=== PATIENT | male | born 1975 | race American Indian/Alaskan Native ===

== ENCOUNTER 2020-06-30 05:33 | Emergency (ER) | payer SELFPAY ==
[2020-06-30 06:25] LABS: Basophils # (Auto) 0.1 K/mm3 (0.0-0.1); Basophils % (Auto) 0.5 % (0.0-1.8); Hemoglobin 14.3 gm/dl (11.8-15.2); Lymphocytes # (Auto) 1.1 K/mm3 (1.2-5.4); Lymphocytes % (Auto) 8.3 % (13.4-35.0); Mean Corpuscular HGB Conc 34 % (32-34); Mean Corpuscular Volume 95 fl (84-94); Monocytes # (Auto) 0.5 K/mm3 (0.0-0.8); Monocytes % (Auto) 3.6 % (0.0-7.3); Platelet Count 318 K/mm3 (140-440); Red Blood Count 4.41 M/mm3 (3.65-5.03); Red Cell Distribution Width 12.5 % (13.2-15.2)
[2020-06-30 06:51] LABS: Alanine Aminotransferase 37 units/L (7-56); Albumin 4.7 g/dL (3.9-5); BUN/Creatinine Ratio 16; Blood Urea Nitrogen 18 mg/dL (9-20); Calcium 9.9 mg/dL (8.4-10.2); Hemolysis Index 15
[2020-06-30 09:30] LABS: Amorphous Crystals,Urine Few; Bilirubin,Urine NEG (Negative); Blood,Urine NEG (Negative); Color,Urine Yellow (Yellow); Mucus,Urine 3+ /HPF; Urobilinogen,Urine < 2.0 mg/dL (<2.0)
[2020-06-30] MEDS ORDERED: KETOROLAC 30 MG/1 ML INJ IV ONE (10:54)
[2020-06-30] MEDS ORDERED: ONDANSETRON 4 MG/2 ML INJ IM ONE (10:55)
--- NOTE | 2020-06-30 10:59 | Emergency Department Report ---
ED Abdominal Pain HPI - General Chief Complaint: Abdominal Pain Stated Complaint: BACK/STOMACH PAIN Source: patient Mode of arrival: Stretcher Limitations: No Limitations - History of Present Illness Initial Comments: 44-year-old male complaining of right flank pain started last night around 10 PM. The pain has now radiated to the right upper quadrant of his abdomen. He reports several episodes of vomiting and nausea. Denies any diarrhea. Patient denies chest pain shortness of breath fever and chills his last bowel movement was at 4 AM. Patient has history of kidney stones last episode was 2 years ago MD Complaint: abdominal pain, flank pain -: Sudden, Last night (2199) Location: RUQ, R flank Severity: severe Severity scale (0 -10): 10 Quality: sharp Improves With: nothing Worsens With: nothing Associated Symptoms: nausea, vomiting. denies: diarrhea, fever, chills, constipation, dysuria, hematemesis, hematochezia, melena, hematuria, anorexia, syncope - Related Data Previous Rx's Medication Instructions Recorded Last Taken Type Ciprofloxacin HCl [Ciprofloxacin 500 mg PO Q12HR 7 Days #14 tab 06/30/20 Unknown Rx TAB] traMADoL [Ultram 50 MG tab] 50 mg PO Q6HR PRN #20 tablet 06/30/20 Unknown Rx Allergies Allergy/AdvReac Type Severity Reaction Status Date / Time No Known Allergies Allergy Unverified 06/30/20 06:00 ED Review of Systems ROS: Stated complaint: BACK/STOMACH PAIN Other details as noted in HPI Comment: All other systems reviewed and negative Constitutional: denies: chills, fever, malaise ENT: denies: ear pain, dental pain Respiratory: denies: cough Cardiovascular: denies: chest pain, dyspnea on exertion, syncope Gastrointestinal: abdominal pain, nausea, vomiting. denies: diarrhea, constipation, hematemesis Skin: denies: rash, lesions Neurological: denies: weakness Psychiatric: suicidal thoughts. denies: anxiety, depression, auditory hallucinations, visual hallucinations, homicidal thoughts ED Past Medical Hx - Past Medical History Previous Medical History?: No - Surgical History Past Surgical History?: No - Social History Smoking Status: Current Every Day Smoker Substance Use Type: None - Medications Home Medications: Home Medications Medication Instructions Recorded Confirmed Last Taken Type Ciprofloxacin HCl [Ciprofloxacin 500 mg PO Q12HR 7 Days #14 tab 06/30/20 Unknown Rx TAB] traMADoL [Ultram 50 MG tab] 50 mg PO Q6HR PRN #20 tablet 06/30/20 Unknown Rx ED Physical Exam - General Limitations: No Limitations General appearance: alert, in no apparent distress - Head Head exam: Present: atraumatic - Eye Eye exam: Present: normal appearance. Absent: scleral icterus, conjunctival injection - ENT ENT exam: Present: normal exam, mucous membranes moist - Neck Neck exam: Present: normal inspection - Respiratory Respiratory exam: Present: normal lung sounds bilaterally. Absent: respiratory distress - Cardiovascular Cardiovascular Exam: Present: regular rate, normal heart sounds - GI/Abdominal GI/Abdominal exam: Present: soft, normal bowel sounds. Absent: distended, tenderness, guarding, rebound, rigid - Rectal Rectal exam: Absent: deferred - Extremities Exam Extremities exam: Present: normal inspection, normal capillary refill - Back Exam Back exam: Present: normal inspection. Absent: CVA tenderness (R), CVA te nderness (L) - Neurological Exam Neurological exam: Present: alert, oriented X3 - Psychiatric Psychiatric exam: Present: normal affect - Skin Skin exam: Present: warm, dry, intact, normal color ED Course Vital Signs 06/30/20 06/30/20 06/30/20 05:43 11:14 11:44 Temperature 98.5 F Pulse Rate 70 Respiratory 20 16 18 Rate Blood Pressure 132/85 Blood Pressure [Left] O2 Sat by Pulse 96 Oximetry 06/30/20 06/30/20 12:10 12:15 Temperature Pulse Rate 75 Respiratory 16 16 Rate Blood Pressure Blood Pressure 126/80 [Left] O2 Sat by Pulse 99 Oximetry - Reevaluation(s) Reevaluation #1: 06/30/20 12:48 CT findings discussed with Dr. Lopez He agrees with the plan that when patient pain is controlled he can be discharged home with pain medication oral antibiotics and follow-up with urology Reevaluation #2: 06/30/20 12:56 Patient pain is more controlled I discussed plan with patient of being sent home with oral medication antibiotics and follow-up with urologist he agrees with this plan plan ED Medical Decision Making - Lab Data Result diagrams: 06/30/20 06:02 06/30/20 06:02 - Radiology Data Radiology results: report reviewed - Medical Decision Making CT Stone Protocol FINDINGS: Abdomen: There is minimal focal groundglass opacity in the inferior aspect of right upper lobe the lung. The remainder of the lung bases are clear. The liver, spleen, pancreas, small bowel show no acute abnormality. There is edema noted around the right kidney with mild dilatation of the right renal collecting system. There is a 8 mm obstructing stone at the right ureteropelvic junction. There are low-density nodules noted in both adrenal glands likely representing adenomas. There are scattered diverticula in the colon. The appendix is unremarkable. Pelvis: There is no obstruction or inflammation. There are no abnormal fluid collections. Phleboliths are noted. Critical Care Time: No Critical care attestation.: If time is entered above; I have spent that time in minutes in the direct care of this critically ill patient, excluding procedure time. ED Disposition Clinical Impression: Kidney calculus Disposition: TO HOME OR SELFCARE Is pt being admited?: No Does the pt Need Aspirin: No Condition: Stable Instructions: Low-Purine Eating Plan, Renal Colic, [id number], Kidney Stones, [id number], Dietary Guidelines to Help Prevent Kidney Stones Additional Instructions: Take your medication as prescribed drinking lots of fluids return to the emergency room if you are unable to urinate if you develop fever worsening pain Prescriptions: Ciprofloxacin HCl [Ciprofloxacin TAB] 500 mg PO Q12HR 7 Days #14 tab traMADoL [Ultram 50 MG tab] 50 mg PO Q6HR PRN #20 tablet PRN Reason: Pain Referrals: PRIMARY CARE, [Primary Care Provider] - 3-5 Days MELODY BRIGGS MD [Staff Physician] - 3-5 Days Time of Disposition: 13:01
[2020-06-30] MEDS ORDERED: ONDANSETRON 4 MG/2 ML INJ IV ONE (11:18)
--- NOTE | 2020-06-30 11:55 | Cat Scan Report ---
CT abdomen wo con INDICATION: right flank pain r/o kidney stone. TECHNIQUE: All CT scans at this location are performed using the following dose modulation technique: Automated exposure control. Helical slices were obtained through the abdomen and pelvis. No contrast is adminis tered. COMPARISON: None available. FINDINGS: Abdomen: There is minimal focal groundglass opacity in the inferior aspect of right upper lobe the l marco antonio. The remainder of the lung bases are clear. The liver, spleen, pancreas, small bowel show no acute abnormality. There is edema noted around the r ight kidney with mild dilatation of the right renal collecting system. There is a [address] one at the right ureteropelvic junction. There are low-density nodules noted in both adrenal glands likely representing adenomas. There are scattered diverticula in the colon. The appendix is unremarkable. Pelvis: There is no obstruction or inflammation. There are no abnormal fluid collections. Phleboliths are noted. On review of bone windows, no acute osseous abnormalities are seen. IMPRESSION: 1. There is an 8 mm obstructing stone at the right ureteropelvic junction. There is mild dilatation o f the right renal collecting system there is swelling of the right kidney and edema around the right kidney. Signer Name: Bright Okeefe MD Signed: 06/30/2020 11:50 AM Workstation Name: [id number]
[2020-06-30] MEDS ORDERED: MORPHINE 4 MG/1 ML INJ IV ONE (12:00)
[2020-06-30 12:16] VITALS: BP 126/80
[2020-06-30] MEDS ORDERED: SODIUM CHLORIDE 0.9% 1000 ML 1,000 ML IV ONE (12:31)
== END 2020-06-30 14:23 | disposition home or self-care (01) ==
LOC: ED 05:33
DX: N20.0 Calculus of kidney (principal); F17.200 Nicotine dependence, unspecified, uncomplicated; Z79.899 Other long term (current) drug therapy
CPT/HCPCS: 36415; 74150; 80053; 81001; 83690; 85025; 96361; 96374; 96375; 99284; J1885; J2270; J2405; J7030